=== PATIENT | male | born 1955 | race Caucasian/White ===

== ENCOUNTER 2020-02-03 13:29 | Outpatient (CLI) | payer OTHER, SELFPAY ==
--- NOTE | ~2020-02-03 | MR_ITS ---
EXAMINATION: MR shoulder LT wo con DATE: 02/03/2020 15:07 INDICATION: Left shoulder pain TECHNIQUE: Magnetic resonance imaging (MRI) of the left shoulder was performed without intravenous co ntrast. Sequences included axial PD-weighted FS FSE, coronal oblique PD-weighted FS FSE, coronal obli que T2-weighted FS FSE, sagittal PD-weighted FS FSE, and sagittal T1-weighted SE. COMPARISON: Left shoulder radiographs dated 01/27/2020 FINDINGS: Coracoacromial arch: The acromion undersurface is curved in morphology (type II). Postoperative change of prior distal cla vicle resection and acromioplasty with foci of susceptibility artifact along the anterior margin of t he acromion. Rotator cuff: Mild supraspinatus tendinopathy with small articular sided tear measuring 3 mm AP and involving up to 50% the tendon thickness at the anterior aspect of the superior facet footplate. Infraspinatus, jose s minor and subscapularis tendons are normal. Normal rotator cuff muscle bulk and signal. Biceps tendon, glenoid labrum and glenohumeral cartilage: Long head of the biceps tendon is normal. The posterior superior glenoid labrum appears small with am orphous increased signal likely representing degeneration without a discrete well-defined labral tear . Glenohumeral cartilage is normal. Fluid: Physiologic amount of fluid in the glenohumeral joint and biceps tendon sheath. No loose osteochondra l bodies. Small amount of fluid in the subacromial/subdeltoid bursa consistent with mild bursitis. Bones: Normal marrow signal with no edema, fracture or abnormal marrow replacing process. IMPRESSION: 1. Supraspinatus tendinopathy with very small articular sided tear anteriorly at the superior facet f ootplate. 2. Degeneration of the posterosuperior glenoid labrum. 3. Mild subacromial/subdeltoid bursitis. Reviewed, dictated and finalized at location B. IMPRESSION: 1. Supraspinatus tendinopathy with very small articular sided tear anteriorly a t the superior facet footplate. 2. Degeneration of the posterosuperior glenoid labrum. 3. Mild subacromial/subdeltoid bursitis.
== END 2020-02-03 13:30 | disposition home or self-care (01) ==
PROVIDERS: PCP Pediatrics; Visit Provider Orthopaedic Surgery
DX: S46.009A Unspecified injury of muscle(s) and tendon(s) of the rotator cuff of unspecified shoulder, initial encounter (principal); X58.XXXA Exposure to other specified factors, initial encounter; M75.52 Bursitis of left shoulder
CPT/HCPCS: 73221

== ENCOUNTER 2023-08-06 07:31 | Outpatient (CLI) | payer OTHER, SELFPAY ==
--- NOTE | ~2023-08-06 | MR_ITS ---
EXAMINATION: MR shoulder LT wo con DATE: 08/06/2023 08:26 INDICATION: Left shoulder pain. TECHNIQUE: Magnetic resonance imaging (MRI) of the left shoulder was performed without intravenous co ntrast. Sequences included axial PD-weighted FS FSE, coronal oblique PD-weighted FS FSE and T2-weight ed FS FSE, and sagittal oblique T2-weighted FS FSE and T1-weighted FSE. COMPARISON: Left shoulder MRI 02/03/2020, radiographs 07/23/2023 FINDINGS: Coracoacromial arch: The acromion undersurface is curved in morphology (type II). There are likely changes of distal clavi ludin resection. There is mild subacromial/subdeltoid bursitis. Rotator cuff: There is moderate supraspinatus tendinopathy and mild infraspinatus tendinopathy. There is articular sided partial tear of anterior supraspinatus tendon measuring 5 mm anterior to posterior by 6 mm prox imal to distal by 40% tendon thickness. There is a 1.3 x 0.6 x 0.5 cm ganglion cyst anterior to supra spinatus tendon. There is a 0.3 x 0.7 x 5.3 cm ganglion cyst in the posterior aspect of the supraspin atus muscle. There is mild infraspinatus tendinopathy. Teres minor tendon is normal. There is mild arteaga bscapularis tendinopathy. There is no asymmetric fatty atrophy of the rotator cuff muscle bellies. Biceps tendon and glenoid labrum: Biceps tendon is in bicipital groove. There is a longitudinal split tear biceps tendon. There is a de generative tear of posterior superior glenoid labrum. Fluid: There is no glenohumeral joint effusion. Bones/cartilage: Glenoid cartilage is normal. Humeral head cartilage is normal. IMPRESSION: 1. Articular-sided partial tear of anterior supraspinatus tendon. Ganglion cyst tracking in posterior supraspinatus muscle. 2. Degenerative tear of posterior superior glenoid labrum. 3. Longitudinal split tear of biceps tendon. 4. Mild subacromial/subdeltoid bursitis. Reviewed, dictated and finalized at location A.
== END 2023-08-06 07:32 | disposition home or self-care (01) ==
PROVIDERS: PCP Pediatrics; Visit Provider Orthopaedic Surgery
DX: M19.012 Primary osteoarthritis, left shoulder (principal); M75.52 Bursitis of left shoulder; S46.212D Strain of muscle, fascia and tendon of other parts of biceps, left arm, subsequent encounter; S43.432D Superior glenoid labrum lesion of left shoulder, subsequent encounter; X58.XXXD Exposure to other specified factors, subsequent encounter
CPT/HCPCS: 73221

== ENCOUNTER 2023-11-04 15:27 | Outpatient (CLI) | payer OTHER, SELFPAY ==
--- NOTE | 2023-11-04 15:30 | ECG_ITS ---
Test Date: 2023-11-04 15:59:26 Measurements Intervals [place] Rate: 96 P: 55 [place]: 174 QRS: -32 QRSD: 104 T: 14 QT: 346 QTc: 438 Interpretive Statements SINUS RHYTHM CANNOT R/O SEPTAL INFARCT, AGE INDETERMINATE INFERIOR INFARCT, AGE INDETERMINATE BASELINE ARTIFACT- I, II, III, AVR, AVL, AVF ABNORMAL ECG No previous ECG available for comparison Electronically Signed On 11-04-2023 16:19:23 CDT by Lalo Baker D.O.
[2023-11-04 16:19] LABS: Anion Gap 12 mmol/L (4-12); Blood Urea Nitrogen 36 mg/dL (9-20); Calcium 9.4 mg/dL (8.4-10.2); Carbon Dioxide 25 mmol/L (22-30); Chloride 99 mmol/L (98-107); Estimated Glomerular Filt Rate > 60; Glucose 204 mg/dL (65-110); Sodium 136 mmol/L (137-145)
== END 2023-11-04 15:28 | disposition home or self-care (01) ==
LOC: ANHSURGERY 15:35
PROVIDERS: Anesthesiology; PCP Pediatrics; Visit Provider Orthopaedic Surgery
DX: E11.9 Type 2 diabetes mellitus without complications (principal); Z01.818 Encounter for other preprocedural examination
CPT/HCPCS: 36415; 80048; 93005

== ENCOUNTER 2024-02-06 09:15 | Outpatient (CLI) | payer OTHER, SELFPAY ==
[2024-02-06 10:42] LABS: Anion Gap 13 mmol/L (4-12); Blood Urea Nitrogen 27 mg/dL (9-20); Calcium 9.6 mg/dL (8.4-10.2); Carbon Dioxide 28 mmol/L (22-30); Chloride 97 mmol/L (98-107); Estimated Glomerular Filt Rate > 60; Glucose 165 mg/dL (65-110); Potassium 3.7 mmol/L (3.4-5.0); Sodium 138 mmol/L (137-145)
== END 2024-02-06 09:16 | disposition home or self-care (01) ==
PROVIDERS: Anesthesiology; PCP Pediatrics; Visit Provider Orthopaedic Surgery
DX: E11.9 Type 2 diabetes mellitus without complications (principal)
CPT/HCPCS: 36415; 80048

== ENCOUNTER 2024-02-13 00:07 | Day surgery (SDC) | payer OTHER, SELFPAY ==
[2023-11-04 08:26] VITALS: BMI 29.2
--- NOTE | 2023-11-04 08:28 | PC.NURSE ---
Report to the Outpatient Waiting Room, entrance under the green pavilion located off [facility], at time _1000_ on date _[id number]_. Planned Procedure Time: _1200_. Time changes happen often and if your time is changed the preop area will call you the afternoon before. - You and your visitor will be asked to self-screen and do not enter if you have any COVID symptoms. - A mask is optional within the hospital at this time. Patients may have clear liquids (water, carbonated beverages, clear teas, apple juice) until 3 hours prior to surgery with a maximum of 20 ounces. - No food from midnight until time of surgery Take the following medications with a SIP of water the morning of surgery: ___None DO NOT STOP ANY OF YOUR OTHER PRESCRIPTION MEDICATIONS PRIOR TO SURGERY ?EXCEPT THE FOLLOWING Medications to discontinue per physician None Date to take last dose Please no make-up, nail panamanian, hairspray, perfume, deodorant, or body powder the day of surgery. No jewelry (including any body piercings) or valuables the day of surgery, leave them at home. Please take a shower or bath the night before, or the morning of, surgery with an antibacterial soap. Wear comfortable, loose fitting clothing. - Jewelry must be removed prior to entering the operating room. Rings and piercings that are not removed may be cut off. - The hospital will not accept responsibility for valuables. - Please leave all valuables, including medications, at home the day of surgery. If you are going home after surgery, a licensed meals on wheels driver must drive you home. - NO public transportation without another adult if you receive anesthesia. - We recommend that an adult stay with you for 24 hours following discharge. - We also recommend that you do not drive, make important decision, drink alcoholic beverages, or take any drugs that were not prescribed by your health care provider for at least 24 hours after your discharge time. Follow any additional instructions given to you from your surgeon. If you or anyone in your household have experienced Covid symptoms in the past week, please notify your surgeon or the nurse liaison at the phone number below for possible testing. Telephone instructions given to __Frank___and asked if any additional questions and then verbalized understanding. Patient advised to call surgeon office or pre surgery nurse liaison [phone] if any additional questions.
--- NOTE | 2023-11-04 16:28 | PC.NURSE ---
Ekg done this afternoon suspicious for infarct x2. Stat reading done and discussed with Dr Abel. Ok'd patient to go home and recommends stress test prior to surgery. Discussed with patient who is having no cardiac symptoms and I will call his primary in the AM as that office is closed now.
[2024-02-05 10:24] VITALS: BMI 29.1
--- NOTE | 2024-02-05 10:43 | PC.NURSE ---
Report to the Outpatient Waiting Room, entrance under the green pavilion located off [facility], at time ___12:00PM____ on date __02/13/24 . Planned Procedure Time: ___2:00PM .? Time changes happen often and if your time is changed the preop area will call you the afternoon before. - You and your visitor will be asked to self-screen and do not enter if you have any COVID symptoms. Please call surgeon if you need to reschedule. - A mask is optional within the hospital at this time. Patients may have clear liquids (water, carbonated beverages, clear teas, apple juice) until 3 hours prior to surgery with a maximum of 20 ounces. - No food from midnight until time of surgery and no smoking. Take only the following medications with a SIP of water on the morning of surgery: ESCITALOPRAM DO NOT STOP ANY OF YOUR OTHER PRESCRIPTION MEDICATIONS PRIOR TO SURGERY EXCEPT THE FOLLOWING Medications to discontinue per physician NONE Date to take last dose Please no make-up, nail vietnamese, hairspray, perfume, deodorant, or body powder the day of surgery.? No jewelry (including any body piercings) or valuables the day of surgery, leave them at home.? Please take a shower or bath the night before, or the morning of, surgery with an antibacterial soap.? Wear comfortable, loose fitting clothing.? - Jewelry must be removed prior to entering the operating room.? Rings and piercings that are not removed may be cut off. - The hospital will not accept responsibility for valuables.? - Please leave all valuables, including medications, at home the day of surgery. If you are going home after surgery, a licensed motorcycle delivery driver must drive you home.? - NO public transportation without another adult if you receive anesthesia. - We recommend that an adult stay with you for 24 hours following discharge. - We also recommend that you do not drive, make important decision, drink alcoholic beverages, or take any drugs that were not prescribed by your health care provider for at least 24 hours after your discharge time. Follow any additional instructions given to you from your surgeon. Telephone instructions given to ____PATIENT and asked if any additional questions and then verbalized understanding. Patient advised to call surgeon office or pre surgery nurse liaison [phone] if any additional questions.
[2024-02-13] VITALS (7 sets, daily range): BP systolic 133–150; BP diastolic 62–78; PULSE 78–85; RESP 14–18; TEMP 36.1; O2SAT 92–99
--- NOTE | 2024-02-13 11:15 | WPDHPUPDATE1 ---
History and Physical Update Update Date/Time: 02/13/24 11:15 History and Physical has been reviewed, including an updated exam of the patient. There are NO changes in the patient's condition. Risks, benefits, and alternatives have been discussed and questions answered. Patient agrees to proceed with procedure.
[2024-02-13] MEDS: ACETAMINOPHEN 500 MG TABLET 1000 MG PO (11:35)
[2024-02-13] MEDS: LACTATED RINGERS 1,000 ML 30 ML IV CONT ×2 (11:35→16:46)
[2024-02-13] MEDS: KETOROLAC 15 MG/ML VIAL (*BKC) IV PUSH (11:35)
[2024-02-13 12:02] LABS: Glucose Point of Care 109 mg/dl (65-105)
--- NOTE | 2024-02-13 13:10 | WPDANESEPPF ---
Anes - Initial Pre Proc Eval Procedure: Operation Date: 02/13/24 14:00 Proposed Procedures p Left Shoulder Arthroscopy, Rotator Cuff Repair with Biceps Tenodesis, Subacromial Decompression - Jasbir Eaton MD Date/Time: 02/13/24 13:10 Surgeon: Jasbir Eaton MD Pre Op Diagnosis: left shoulder partial rot cuff tear Patient Data Age: 68 Gender: M Height: 1.73 m Weight: 86.2 kg Last Vital Signs Temp 36.1 C L 02/13/24 12:00 Pulse 83 02/13/24 12:00 Resp 16 02/13/24 12:00 BP 138/64 02/13/24 12:00 Pulse Ox 99 02/13/24 12:00 O2 Del Method Room Air 02/13/24 12:00 Allergies Allergy/AdvReac Type Severity Reaction Status Date / Time Penicillins Allergy Mild Unknown Verified 02/05/24 10:20 Home Medications Medication Instructions Recorded Confirmed Type atorvastatin 40 mg tablet 40 mg PO DAILY 01/27/20 02/05/24 History dapagliflozin propanediol 10 mg 10 mg PO DAILY 01/27/20 02/05/24 History tablet (Farxiga) insulin degludec 100 46 unit subcut DAILY 01/27/20 02/05/24 History unit-liraglutide 3.6 mg/mL(3 mL) subcutaneous pen (Xultophy 100/3.6) metformin 1,000 mg tablet 1,000 mg PO BID 01/27/20 02/05/24 History ramipril 10 mg capsule 10 mg PO QAM 01/27/20 02/05/24 History indapamide 1.25 mg tablet 1.25 mg PO HS 11/04/23 02/05/24 History escitalopram oxalate 10 mg tablet 10 mg PO QAM 02/05/24 02/05/24 History pioglitazone 30 mg tablet 30 mg PO QAM 02/05/24 02/05/24 History tadalafil 20 mg tablet 20 mg PO DAILY PRN Sexual Activity 02/05/24 02/05/24 History oxycodone-acetaminophen 5 mg-325 1 - 2 tablet PO Q4-6H PRN pain 7 02/13/24 Rx mg tablet days #30 tabs Laboratory Tests 02/13/24 11:59 POC Capillary Glucose 109 H mg/dl (65-105) Patient hx anesthesia problems: none Family hx anesthesia problems: none Results Review: All pre-operative results and documents have been reviewed as part of the pre-operative evaluation. [facility] Past Medical History Medical History BMI 27.0-27.9,adult Carpal tunnel syndrome Deficient knowledge of shoulder surgery Dr. Bush, waiting on records for more information Diabetes Hemoglobin A1C between 7% and 9% indicating borderline diabetic control last A1c noted by pt to be 7.4 Hypertension Surgical History Surgical History History of knee surgery Dr. Bush, waiting on records for more information History of shoulder surgery left rotator cuff Family History Family History Mother Diabetes mellitus Social History Social History (Updated 02/04/24 @ 09:45 by Emily Hurtado CMA) Smoking packs per day: 3 Smoking cigarettes per day: 60.0 Years smoked: 5 Smoking pack-years: 15.00 Smoking status: Former smoker Tobacco type: cigarettes Smoking end date: 10/05/81 Alcohol intake: current Alcohol use details: occasional Do You Feel Safe in your Home?: Yes Lack of Transportation: No Lack of Food: Never True Current Housing: I Have Housing Concerned About Future Housing: No Difficulty Paying Gas/Electric Bills: No Difficulty Paying for Meds: No Currently Unemployed: No Education: Associate Degree Difficulty w/ Childcare or Family Care: No Living arrangements: with family Additional living arrangements comments: [facility] Occupation/Education: occupation Additional occupation/education comments: [employer] Gender identity (if verbalized by the patient): Male Spiritual care concerns: No Anes - Eval Final PreProcedure Day of Procedure 02/13/24 13:10 Patient weight: overweight Heart: regular rate and rhythm Lungs: clear to auscultation Airway: Mallampati scale class III Neurological: alert and oriented Last oral intake: >/= 8 hours ASA classification: III Emergent: no Anesthetic plan: proceed Anesthesia type and monitoring: general ETT and standard monitoring Results Review: All pre-operative results and documents have been reviewed as part of the pre-operative evaluation. Informed Consent: The patient's anesthetic plan and its attendant risks and benefits were discussed with the patient/family/POA. Questions were solicited and answers provided to the satisfaction of the patient/family/POA.
--- NOTE | 2024-02-13 14:46 | WPDANESPNB ---
Anes - Peripheral Nerve Block Date/Time: 02/13/24 14:46 I have discussed with the patient/family/POA the placement of a peripheral nerve block for post-operative pain management, including associated risks, benefits, complications, and side effects. Alternative methods of post-operative analgesia were detailed. Questions were solicited and answers provided to the satisfaction of the patient/family/POA. Time-Out: A pre-procedural Time-Out was completed immediately before starting the procedure and confirmed: Patient Identification, Site, Procedure, Patient Position and the Availability of Requisite Equipment. Clinical Indications: Acute post-operative pain management requested by the operative surgeon. Nerve Block Insertion Note Anes-nerve block: interscalene left Patient position: supine Skin prep: chlorhexidine Needle: 22 gauge, stimulating, insulated echogenic needle. Needle length: 50 mm Technique: ultrasound Injectate: bupivacaine 0.5% with epi 5 mcg/ml (20cc- no epi) Observations: tolerated well Complications: none Procedure start time:: 1438 Procedure end time:: 1442
[2024-02-13] MEDS: ceFAZolin 2 GM/D5W 50 ML 2 GM/50 ML BAG IVPB (15:03)
[2024-02-13 16:57] LABS: Glucose Point of Care 106 mg/dl (65-105)
--- NOTE | 2024-02-13 17:20 | W.PM.PROC2 ---
Procedure Note - Detailed Date of Procedure 02/13/24 Pre-op Diagnosis 1. Left shoulder partial-thickness rotator cuff tear 2. Biceps tendinosis with split tear Post-op Diagnosis Other (Left shoulder 1. Partial-thickness rotator cuff tear 2. Subacromial impingement 3. Biceps tendinosis) Procedure Performed Left shoulder 1. Arthroscopic rotator cuff repair 2. Arthroscopic subacromial decompression 3. Arthroscopic biceps tenodesis Surgeon Jasbir Eaton MD Claim Representative Kristin Harrington PA-C Anesthesia General and Regional ( interscalene block) Findings Notable chondrocalcinosis scattered throughout the glenoid. Also the anterior articular supraspinatus. The biceps was flattened and also showed chondrocalcinosis. The labrum showed moderate degenerative changes along the inferior aspect. The superior labrum was normal. A biceps tenodesis was performed with a loop and tack system. Attention was turned to the subacromial space. Low-grade bursal side tear with mild interstitial extension. Tear amenable to repair with a Regeneten implant. Evidence for subacromial impingement with significant scar about the deltoid attachment to the acromion. Subacromial decompression performed as the outlet space was quite tight. Medium Regeneten graft with 5 LYN soft tissue anchors and 2 peek bone anchors. Description of Procedure Preoperative antibiotics were given. An interscalene block was administered in the preoperative area. The patient was bought brought to the operating room. A general anesthetic was administered. The patient was carefully positioned in the beach chair position. The head and neck were carefully positioned. The non operative extremity was also carefully positioned. The shoulder was prepped and draped in the usual sterile fashion. Examination was performed. Standard posterior and anterior arthroscopic portals were established. Inflow achieved with the arthroscopic pump using saline and epinephrine. The glenohumeral joint was carefully inspected. The articular cartilage was intact except for scattered chondrocalcinosis diffusely. The inferior labrum was moderately degenerative, and was debrided with the shaver. The biceps showed chondrocalcinosis and flattening consistent with the MRI findings of longitudinal split tear. A SwiveLock anchor was placed at the articular margin and the loop and tack suturing of the biceps was performed after release from the superior labrum. The articular supraspinatus showed significant chondrocalcinosis and a small amount of degenerative disc coloring. No actual tearing. Attention was turned to the subacromial space. A complete bursectomy was performed. The bursa was moderately hypertrophic and there was some scarring. The lateral supraspinatus showed low-grade bursal side tearing with a small defect and slight interstitial extension. There was evidence of impingement. A modest acromioplasty was performed. The medium Regeneten graft was inserted over the defect. Five LYN anchors were placed through a separate arthroscopic portal superior laterally. Two peek bone anchors were placed through the lateral arthroscopic portal. The arthroscopic instruments were removed. The wounds were closed with 3-0 Monocryl subcuticular suture and steri strips. There were no complications. A sling was applied and the patient brought to the recovery room. Physician permit review assistant, Kristin Harrington PA-C, required for surgery; including patient positioning, draping, arthroscopic camera operation, maintaining instrument position, suture retrieval, maintaining implant positioning during fixation, wound closure, and dressing and sling placement. Implants [employer] Regeneten collagen implant medium size. Five LYN soft tissue anchors. Two peek bone anchors. Arthrex 4.75 SwiveLock BioComposite anchor. Estimated Blood Loss 20 Pathology None sent Complications No immediate complications Condition Stable Disposition PACU [facility] Billing Surgery - Charge Forward: Surgery Billing
== END 2024-02-13 18:16 | disposition home or self-care (01) ==
PROVIDERS: PCP Pediatrics; Visit Provider Orthopaedic Surgery
PROC: (CPT 29805; principal; 2024-02-13 14:00)
DX: M75.112 Incomplete rotator cuff tear or rupture of left shoulder, not specified as traumatic (principal); M75.42 Impingement syndrome of left shoulder; M75.22 Bicipital tendinitis, left shoulder; G89.18 Other acute postprocedural pain; I10 Essential (primary) hypertension; E11.9 Type 2 diabetes mellitus without complications; Z87.891 Personal history of nicotine dependence; Z79.84 Long term (current) use of oral hypoglycemic drugs; Z79.4 Long term (current) use of insulin
CPT/HCPCS: 29827; 29828; 29826; 64415; 82948; A9270; C1713; J0171; J0690; J1100; J1885; J2003; J2250; J2405; J2704; J3010; J7120